=== PATIENT | male | born 1970 ===

== ENCOUNTER 2025-02-24 08:09 | Outpatient (REF) | payer OTHER, SELFPAY ==
--- NOTE | ~2025-02-24 | XR_ITS ---
EXAMINATION: XR SHOULDER, RIGHT CLINICAL INFORMATION: M25.511 - Pain in right shoulder COMPARISON: None available. TECHNIQUE: Two views of the right shoulder. FINDINGS: Normal bone mineralization. No fracture, dislocation, or suspicious bone lesion. The glenohumeral joint is normal. Mild subluxation of the AC joint, possible low-grade AC joint injury. There is a neutral lateral acromion. No undersurface spurring. The subacromial space is preserved. Remainder of the soft tissue and bony structures appear normal. XR/XR shoulder RT min 2V IMPRESSION: 1. Possible low-grade AC injury. Please correlate with point tenderness. 2. Otherwise normal examination. Electronically signed by: Curly Palafox MD 02/24/2025 11:05 AM EDT
== END 2025-02-24 08:10 | disposition home or self-care (01) ==
LOC: HO.HOSX 08:09
PROVIDERS: Visit Provider Orthopaedic Surgery
DX: M25.311 Other instability, right shoulder (principal); M75.41 Impingement syndrome of right shoulder; M25.511 Pain in right shoulder
CPT/HCPCS: 73030; 99202

== ENCOUNTER 2025-02-24 09:58 | Outpatient (AMB) | payer OTHER, SELFPAY ==
--- NOTE | 2025-02-24 10:00 | A.OFFVIS_ITS ---
Vital Signs 02/24/25 10:04 Height 5 ft 9 in Weight 160 lb BMI 23.6 Intake Visit Reasons: Right shoulder pain and weakness Intake Note: David is a 55 year old right hand dominant male who presents with complaints of progressively worsening right shoulder pain and weakness. The patient states that he injured his shoulder approximately 8 months ago while playing baseball a nd pitching. He had acute onset of pain. He did rest his shoulder for 6 weeks following that injury. He has been to formal physical therapy. He has failed the last 6 weeks of conservative treatment which has included physical therapy exercises, a home exercise program, anti-inflammatory medicines, Tylenol and heat application. He reports weakness when lifting his right hand above shoulder height. Allergies No Known Allergies Allergy (Verified 02/24/25 10:04) Medication List - Last Reconciled 02/24/25 by James Morse MD No Known Home Meds Physical Exam Exam Exam: Well-nourished well-developed very friendly male awake alert and oriented x3 in no acute distress Vital Signs: BMI result Body Mass Index 23.6 Extrem Other: Right shoulder examination shows slightly decreased range motion when compared to his left shoulder, positive impingement signs, 4+ out of 5 strength with supraspinatus testing, no instability Results Reviewed Results Reviewed: X-rays of the patient's right shoulder show severe acromioclavicular joint narrowing, a type 2 acromion, no acute bony abnormalities Assessment & Plan Assessment & Plan (1) Rotator cuff insufficiency of right shoulder: Code(s): M25.311 - Other instability, right shoulder Category: Medical Plan Mr. Nguyễn presents with right shoulder pain and weakness due to impingement syndrome and possible rotator cuff tearing. Thus, I will send the patient for an MRI of his right shoulder for further evaluation. I will see him back once the MRI is completed to discuss the findings and treatment options. He will continue with his activity modifications in the meantime. I spent 20 minutes in reviewing the patient's records and imaging studies, seeing the patient and documenting in the medical record. Orders: Orders XR shoulder RT min 2V Today M25.511 - Pain in right shoulder MR shoulder RT wo con 02/25/25 M25.311 - Other instability, right shoulder Coding Level of Care Code New Pt Level 3 (59117) Complex EM visit Add On G2211 Diagnoses Rotator cuff insufficiency of right shoulder M25.311
[2025-02-24 10:04] VITALS: BMI 23.6
--- OUTSIDE RECORDS SUMMARY | 2025-02-24 10:41 | XMS_ITS ---
Author Name [facility] Organization Unknown Encounters Encounter Type Encounter Reason Primary Diagnosis Location Date Ambulatory [facility] [place] 12/09/2024
== END 2025-02-24 10:29 | disposition home or self-care (01) ==
LOC: HO.HOS 09:58
PROVIDERS: Visit Provider Orthopaedic Surgery
DX: M25.311 Other instability, right shoulder (principal)
CPT/HCPCS: 99203

== ENCOUNTER → 2025-02-24 10:00 | Outpatient (BNV) | payer OTHER, SELFPAY | PROVIDERS: Visit Provider Radiology Diagnostic Radiology | DX: M25.511 Pain in right shoulder (principal) | CPT/HCPCS: 73030 ==

== ENCOUNTER → 2025-03-12 08:15 | Outpatient (BNV) | payer OTHER, SELFPAY | PROVIDERS: Visit Provider Radiology Diagnostic Radiology | DX: S43.121A Dislocation of right acromioclavicular joint, 100%-200% displacement, initial encounter (principal) | CPT/HCPCS: 73221 ==

== ENCOUNTER 2025-03-12 08:16 | Outpatient (REF) | payer OTHER, SELFPAY ==
--- NOTE | ~2025-03-12 | MR_ITS ---
CLINICAL HISTORY: M25.311 - Other instability, right shoulder MR right shoulder Comparison: DX/[place]/[facility] - XR SHOULDER 2 OR MORE VIEWS RIGHT - 02/24/25 10:00 EDT Findings: No fracture or dislocation of the osseous structures. There is edema in the humeral head at the posterior aspect. There is edema in the distal clavicle without a definitive fracture line. The distal clavicle is mildly elevated relative to the acromion but is not above the superior border of the acromion. The acromioclavicular ligament and joint capsule are disrupted. The coracoclavicular ligament is intact. There is no edema or detachment of the deltoid and trapezius muscles. No joint effusion. Trace fluid within the subacromial/ subdeltoid bursa. There is increased signal within the supraspinatus and infraspinatus tendons with partial tears. No complete tear, retraction or muscular atrophy. Subscapularis and teres minor are unremarkable. There is signal abnormality in the labrum of the superior and posterior aspects with discontinuity most prominent posteriorly. There is partial-thickness glenohumeral chondromalacia. The biceps tendon and bicipital-labral anchor are normal. The coracoacromial and coracohumeral ligaments are intact. Cutaneous and subcutaneous tissues are normal. The quadrilateral space is unremarkable. Impression: Edema in the humeral head at the posterior aspect is favored to be posttraumatic. A degenerative etiology is considered less likely. Edema in the distal clavicle without a definitive fracture line is favored to be posttraumatic rather than degenerative. There is an acromioclavicular joint injury, Kasey classification type II. Supraspinatus and infraspinatus tendinopathy with partial tears. Labral tear. Partial-thickness glenohumeral chondromalacia, degenerative. This document has been electronically signed by: Ale Ramirez MD on 03/12/2025 15:50:19
== END 2025-03-12 08:17 | disposition home or self-care (01) ==
LOC: HO.MRI 08:16
PROVIDERS: Visit Provider Orthopaedic Surgery
DX: M25.311 Other instability, right shoulder (principal)
CPT/HCPCS: 73221

== ENCOUNTER 2025-04-09 09:29 | Outpatient (AMB) | payer OTHER, SELFPAY ==
[2025-04-09 09:31] VITALS: BMI 23.6
--- NOTE | 2025-04-09 09:31 | MHC.OFFVIS ---
Vital Signs 04/09/25 09:31 Height 5 ft 9 in Weight 160 lb BMI 23.6 Intake Visit Reasons: OV-MRI Shoulder RT review Intake Note: David is a 55 year old man who presents with complaints of progressively worsening right shoulder pain. The patient describes his pain as sharp in nature. He has had difficulty throwing while playing baseball. He reports mild weakness when lifting his right hand above shoulder height. He continues to exercise as much as possible. He has tried Tylenol and anti-inflammatory medicines which gave him minimal relief. The patient's symptoms have gotten worse over the last year in spite of continued non operative treatments. 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 Physical Exam Vital Signs: BMI result Body Mass Index 23.6 Const Other: Well-nourished well-developed very friendly male awake alert and oriented x3 in no acute distress Extrem Other: Right shoulder examination shows almost full range of motion when compared to his left shoulder, 5/5 strength with supraspinatus testing, positive impingement signs, tenderness over his acromioclavicular joint, no instability Results Reviewed Results Reviewed: MRI of the patient's right shoulder show severe acromioclavicular joint narrowing, a type 2 acromion, signal change within the supraspinatus tendon most likely due to rotator cuff tendinosis, no full-thickness tear noted Assessment & Plan Assessment & Plan (1) Impingement of right shoulder: Code(s): M25.811 - Other specified joint disorders, right shoulder Category: Medical Plan Mr. Nguyễn presents with right shoulder pain due to impingement syndrome and acromioclavicular joint arthritis. I had a lengthy discussion with the patient regarding the treatment options. At this point he appears to be failing continued non operative treatments. Is considering undergoing right shoulder surgery for early next year. Will contact my office to pick a surgery date if he chooses to do so. Surgery will involve right shoulder arthroscopic distal clavicle excision and right shoulder arthroscopic acromioplasty. Will continue with his range of motion exercises in the meantime to prevent stiffness. I spent 21 minutes in reviewing the patient's records and imaging studies, seeing the patient and documenting in the medical record. Coding Level of Care Code Est Pt Level 3 (11436) Complex EM visit Add On G2211 Diagnoses Impingement of right shoulder M25.811
== END 2025-04-09 10:04 | disposition home or self-care (01) ==
LOC: HO.HOS 09:29
PROVIDERS: Visit Provider Orthopaedic Surgery
DX: M25.811 Other specified joint disorders, right shoulder (principal)
CPT/HCPCS: 99213

== ENCOUNTER → 2025-04-09 09:29 | Outpatient (BNVA) | payer OTHER, SELFPAY | PROVIDERS: Visit Provider Orthopaedic Surgery | DX: M25.511 Pain in right shoulder (principal); M25.811 Other specified joint disorders, right shoulder | CPT/HCPCS: 99212 ==